=== PATIENT | male | born 1990 | race Caucasian/White ===

== ENCOUNTER 2020-11-06 23:06 | Emergency (ER) | payer OTHER ==
[2020-11-06 23:12] VITALS: BP 148/98
[2020-11-06 23:37] LABS: BILIRUBIN,URINE NEGATIVE (NEGATIVE); GLUCOSE, URINE (UA) NEGATIVE (NEGATIVE); KETONES,URINE (UA) 15 mg/dL (NEGATIVE); LEUKOCYTE ESTERASE, URINE NEGATIVE (NEGATIVE); NITRITE,URINE NEGATIVE (NEGATIVE); OCCULT BLOOD,URINE NEGATIVE (NEGATIVE); PROTEIN,URINE NEGATIVE (NEGATIVE); UROBILINOGEN,URINE 0.2 (NORMAL) E.U./dL (NORMAL)
[2020-11-06 23:38] LABS: CLARITY,URINE CLEAR (CLEAR)
[2020-11-06 23:55] LABS: BASOPHILS % (AUTO) 0.1 %; EOSINOPHILS % (AUTO) 0.2 %; HCT - HEMATOCRIT 40.5 % (42.0-52.0); HGB - HEMOGLOBIN 13.5 g/dL (14.0-18.0); LYMPHOCYTES # (AUTO) 1.8 10^3/uL (1.5-3.5); LYMPHOCYTES % (AUTO) 13.1 %; MEAN CORPUSCULAR HEMOGLOBIN 29.5 pg (27.0-31.0); MEAN CORPUSCULAR HGB CONC 33.3 g/dL (32.0-36.0); MEAN CORPUSCULAR VOLUME 88.4 fL (80.0-94.0); MEAN PLATELET VOLUME 9.3 fL (7.4-11.4); MONOCYTES # (AUTO) 1.3 10^3/uL (0.0-1.0); MONOCYTES % (AUTO) 9.4 %; NEUTROPHILS # (AUTO) 10.4 10^3/uL (1.5-6.6); NEUTROPHILS % (AUTO) 76.9 %; PLT - PLATELET COUNT 270 10^3/uL (130-450); RED BLOOD COUNT 4.58 10^6/uL (4.70-6.10); RED CELL DISTRIBUTION WIDTH 13.7 % (12.0-15.0); WHITE BLOOD COUNT 13.6 x10^3/uL (4.8-10.8)
--- NOTE | 2020-11-07 00:03 | ED Physician Documentation ---
PD HPI ABD PAIN - Stated complaint Stated Complaint: ABD Px - Chief complaint Chief Complaint: Abd Pain - History obtained from History obtained from: Patient - History of Present Illness Timing - onset: Yesterday Timing - duration: Days (1) Timing - details: Gradual onset, Still present Quality: Cramping, Sharp, Pain Location: Suprapubic Improved by: Laying still Worsened by: Eating, Moving, Position, Palpation Associated symptoms: Fever, Nausea, Other (blood on outside of stool). No: Vomiting, Diarrhea, Constipation Similar symptoms before: Has not had sx before Recently seen: Not recently seen - Additional information Additional information: 30-year-old male has had a 2-day history of blood around his stool and lower abdominal cramping-like pain. He states the pain is significant and he is here for evaluation. He has not had this pain previously he has not had blood in his stool previously he does not have a history of hemorrhoids. He does not have any family history of inflammatory bowel disease. Review of Systems Constitutional: reports: Fever Eyes: denies: Decreased vision Ears: denies: Ear pain Nose: denies: Rhinorrhea / runny nose, Congestion Throat: denies: Sore throat Cardiac: denies: Chest pain / pressure, Palpitations Respiratory: denies: Dyspnea, Cough GI: reports: Abdominal Pain, Nausea, Bloody / black stool. denies: Vomiting, Constipation, Diarrhea : denies: Dysuria, Frequency Skin: denies: Rash Musculoskeletal: denies: Neck pain, Back pain, Extremity pain Neurologic: denies: Generalized weakness, Focal weakness, Numbness PD PAST MEDICAL HISTORY - Past Medical History Past Medical History: No Cardiovascular: None Respiratory: None Neuro: None Endocrine/Autoimmune: None GI: None : None HEENT: None Psych: None Musculoskeletal: None - Past Surgical History Past Surgical History: No - Present Medications Home Medications: Ambulatory Orders Medication Instructions Recorded Confirmed Ciprofloxacin HCl [Cipro] 500 mg PO BID #14 tablet 11/07/20 HYDROcod/ACETAM 5/325 [[place]pine 5/325] 1 - 2 tablet PO Q6H PRN #14 tablet 11/07/20 metroNIDAZOLE [Flagyl] 500 mg PO BID #14 tablet 11/07/20 - Allergies Allergies/Adverse Reactions: Allergies Allergy/AdvReac Type Severity Reaction Status Date / Time No Known Drug Allergies Allergy Verified 11/06/20 23:09 - Social History Does the pt smoke?: No Does the pt drink ETOH?: Yes Does the pt have substance abuse?: No - Immunizations Immunizations are current?: Yes PD ED PE NORMAL - Vitals Vital signs reviewed: Yes (tachy and hypertensive ) - General General: Alert and oriented X 3, No acute distress, Well developed/nourished - HEENT HEENT: Atraumatic, PERRL, EOMI - Neck Neck: Supple, no meningeal sign, No bony TTP - Cardiac Cardiac: RRR, No murmur - Respiratory Respiratory: No respiratory distress, Clear bilaterally - Abdomen Abdomen: Normal bowel sounds, Soft, Non distended, No organomegaly, Other (mild suprapubic tenderness right and left. No RUQ tenderness ) - Back Back: No CVA TTP, No spinal TTP - Derm Derm: Normal color, Warm and dry, No rash - Extremities Extremities: No deformity, No edema - Neuro Neuro: Alert and oriented X 3, alteration tailor 2-12 intact, No motor deficit, No sensory deficit, Normal speech Eye Opening: Spontaneous Motor: Obeys Commands Verbal: Oriented GCS Score: 15 - Psych Psych: Normal mood, Normal affect Results - Vitals Vitals: Vital Signs - 24 hr 11/06/20 11/06/20 23:09 23:12 Temperature 36.5 C 36.5 C Heart Rate 110 H 110 H Respiratory 16 16 Rate Blood Pressure 148/98 H 148/98 H O2 Saturation 96 96 Oxygen O2 Source Room air - Labs Labs: Laboratory Tests 11/06/20 11/06/20 11/06/20 23:27 23:51 23:51 WBC 13.6 H RBC 4.58 L Hgb 13.5 L Hct 40.5 L MCV 88.4 MCH 29.5 MCHC 33.3 RDW 13.7 Plt Count 270 MPV 9.3 Neut # (Auto) 10.4 H Lymph # (Auto) 1.8 [place] # (Auto) 1.3 H Eos # (Auto) 0.0 Baso # (Auto) 0.0 Absolute Nucleated RBC 0.00 Nucleated RBC % 0.0 Sodium 136 Potassium 3.4 L Chloride 100 L Carbon Dioxide 23 Anion Gap 13.0 BUN 9 Creatinine 0.9 Estimated GFR (MDRD) 98 Glucose 119 H Calcium 8.8 Total Bilirubin 1.5 H AST 26 ALT 33 Alkaline Phosphatase 67 Total Protein 8.4 H Albumin 4.3 Globulin 4.1 Albumin/Globulin Ratio 1.0 Lipase 18 L Urine Color YELLOW Urine Clarity CLEAR Urine pH 6.0 Ur Specific [place] 1.010 Urine Protein NEGATIVE Urine Glucose (UA) NEGATIVE Urine Ketones 15 H Urine Occult Blood NEGATIVE Urine Nitrite NEGATIVE Urine Bilirubin NEGATIVE Urine Urobilinogen 0.2 (NORMAL) Ur Leukocyte Esterase NEGATIVE Ur Microscopic Review NOT INDICATED Urine Culture Comments NOT INDICATED PD MEDICAL DECISION MAKING - ED course Complexity details: reviewed results, re-evaluated patient, considered differential, d/w patient ED course: 30-year-old male with suprapubic abdominal pain and fever has diverticulitis on evaluation of the CT scan of the abdomen pelvis. He is administered oral Cipro and Flagyl. Departure - Departure Disposition: 01 Home, Self Care Clinical Impression: Diverticulitis of gastrointestinal tract Condition: Stable Instructions: ED Diverticulitis Follow-Up: SAIDA Zapata [Provider Group] Prescriptions: Ciprofloxacin HCl [Cipro] 500 mg PO BID #14 tablet metroNIDAZOLE [Flagyl] 500 mg PO BID #14 tablet HYDROcod/ACETAM 5/325 [Alpine 5/325] 1 - 2 tablet PO Q6H PRN #14 tablet PRN Reason: Pain Forms: Activity restrictions Discharge Date/Time: 11/07/20 02:16
[2020-11-07 00:10] LABS: ALBUMIN 4.3 g/dL (3.2-5.5); BILIRUBIN,TOTAL 1.5 mg/dL (0.2-1.0); CALCIUM 8.8 mg/dL (8.5-10.3); CREATININE 0.9 mg/dL (0.6-1.2); POTASSIUM 3.4 mmol/L (3.5-5.0); TOTAL PROTEIN 8.4 g/dL (6.7-8.2)
[2020-11-07] MEDS ORDERED: IOVERSOL 320 100 ML VIAL IVP ONE ×2 (00:28→00:50)
[2020-11-07] MEDS ORDERED: SODIUM CHLORIDE 0.9% 1,000 ML IV STA (00:52)
[2020-11-07] MEDS ORDERED: CIPROFLOXACIN 250 MG TABLET PO STA (01:35)
[2020-11-07] MEDS ORDERED: metroNIDAZOLE 250 MG TABLET PO STA (01:35)
[2020-11-07] MEDS ORDERED: KETOROLAC 30 MG/ML VIAL IVP STA (01:37)
--- NOTE | 2020-11-07 11:01 | CT Report ---
PROCEDURE: Abdomen/Pelvis W INDICATIONS: lower abdominal pain with bloody stool CONTRAST: IV CONTRAST: Optiray 320 ml: 100 PO CONTRAST: *NO PO CONTRAST TECHNIQUE: After the administration of contrast, 5 mm thick sections acquired from the diaphragms to the sym physis. 5 mm thick coronal and sagittal reformats were acquired. For radiation dose reduction, the following was used: automated exposure control, adjustment of mA and/or kV according to patient size . COMPARISON: None. FINDINGS: Image quality: Excellent. ABDOMEN: Lung bases: Lung bases are clear. Heart size is normal. Solid organs: Spleen are normal in size and enhancement. Liver is diffusely decreased in attenuation without focal mass lesion. Gallbladder unremarkable Biliary system is non dilated. Pancreas enhanc es normally. No adrenal nodules. Kidneys demonstrate normal size and enhancement, without hydroneph rosis. Peritoneum and bowel: Diffuse sigmoid wall thickening and pericolonic inflammatory change is noted wi thout evidence of obstruction. No encapsulated free fluid suggest abscess. There is minimal free flui d in the pelvis. Nodes and vessels: No retroperitoneal or mesenteric adenopathy by size criteria. Aorta and inferior vena cava are normal in size. Miscellaneous: No ventral hernias. PELVIS: Genitourinary: Bladder wall thickness is normal. Miscellaneous: No inguinal hernias or adenopathy. Bones: No suspicious bony lesions. No vertebral body compression fractures. IMPRESSION: 1. Acute uncomplicated sigmoid diverticulitis without evidence of abscess, free air or obstruction. 2. Hepatic fatty infiltration. Note: Final report is concordant with preliminary report provided by [employer] Reviewed by: Jonathan Licona MD on 11/07/2020 10:00 AM NEGRO Approved by: Jonathan Licona MD on 11/07/2020 10:00 AM AKANNELISE Station ID: [id number]
== END 2020-11-07 02:16 | disposition home or self-care (01) ==
LOC: ED 23:06
DX: K57.32 Diverticulitis of large intestine without perforation or abscess without bleeding (principal); K76.0 Fatty (change of) liver, not elsewhere classified
CPT/HCPCS: 36415; 74177; 80053; 81003; 83690; 85025; 96361; 96374; 99284; A9270; Q9967; 81001; 87086

== ENCOUNTER 2020-11-13 09:48 | Inpatient (IN) | payer OTHER ==
[2020-11-13 10:24] LABS: BASOPHILS % (AUTO) 0.3 %; EOSINOPHILS # (AUTO) 0.1 10^3/uL (0.0-0.7); EOSINOPHILS % (AUTO) 1.5 %; HCT - HEMATOCRIT 38.9 % (42.0-52.0); HGB - HEMOGLOBIN 12.7 g/dL (14.0-18.0); LYMPHOCYTES # (AUTO) 1.4 10^3/uL (1.5-3.5); MEAN CORPUSCULAR HEMOGLOBIN 29.6 pg (27.0-31.0); MEAN CORPUSCULAR HGB CONC 32.6 g/dL (32.0-36.0); MEAN CORPUSCULAR VOLUME 90.7 fL (80.0-94.0); MONOCYTES # (AUTO) 0.9 10^3/uL (0.0-1.0); NEUTROPHILS % (AUTO) 73.5 %; PLT - PLATELET COUNT 357 10^3/uL (130-450); RED BLOOD COUNT 4.29 10^6/uL (4.70-6.10); RED CELL DISTRIBUTION WIDTH 13.6 % (12.0-15.0); WHITE BLOOD COUNT 9.5 x10^3/uL (4.8-10.8)
[2020-11-13] MEDS ORDERED: KETOROLAC 15 MG/ML VIAL IVP STA (10:27)
[2020-11-13] MEDS ORDERED: MORPHINE 2 MG/ML CARPUJECT IVP STA (10:27)
[2020-11-13] MEDS ORDERED: IOPAMIDOL-300 100 ML VIAL ONE (10:33)
--- NOTE | 2020-11-13 10:34 | ED Physician Documentation ---
PD HPI ABD PAIN - Stated complaint Stated Complaint: ABDOMINAL PX - Chief complaint Chief Complaint: Abd Pain - History obtained from History obtained from: Patient - Additional information Additional information: 30-year-old gentleman was seen here on the . He had his first episode of diverticulitis. He was placed on Cipro and Flagyl and a CT was showing uncomplicated sigmoid diverticulitis. Since then he has not gotten any better. He has had a small amount of blood in his stools. Denies fevers. Pain is still persistent. Review of Systems Ten Systems: 10 systems reviewed and negative Constitutional: denies: Fever, Chills Cardiac: reports: Reviewed and negative Respiratory: reports: Reviewed and negative PD PAST MEDICAL HISTORY - Past Medical History Past Medical History: Yes Cardiovascular: None Respiratory: None Neuro: None Endocrine/Autoimmune: None GI: None : None HEENT: None Psych: None Musculoskeletal: None Derm: None - Past Surgical History Past Surgical History: No - Present Medications Home Medications: Ambulatory Orders Medication Instructions Recorded Confirmed Ciprofloxacin HCl [Cipro] 500 mg PO BID #14 tablet 11/07/20 HYDROcod/ACETAM 5/325 [[place] 5/325] 1 - 2 tablet PO Q6H PRN #14 tablet 11/07/20 metroNIDAZOLE [Flagyl] 500 mg PO BID #14 tablet 11/07/20 - Allergies Allergies/Adverse Reactions: Allergies Allergy/AdvReac Type Severity Reaction Status Date / Time No Known Drug Allergies Allergy Verified 11/13/20 09:58 - Social History Does the pt smoke?: No Smoking Status: Never smoker Does the pt drink ETOH?: Yes Does the pt have substance abuse?: No - Immunizations Immunizations are current?: Yes - POLST Patient has POLST: No PD ED PE NORMAL - Vitals Vital signs reviewed: Yes - General General: Alert and oriented X 3, No acute distress - HEENT HEENT: PERRL, EOMI - Neck Neck: Supple, no meningeal sign, No bony TTP - Cardiac Cardiac: RRR, No murmur - Respiratory Respiratory: No respiratory distress, Clear bilaterally - Abdomen Abdomen: Normal bowel sounds, Soft, Other (Tender in the low abdomen, left greater than right without surgical signs) - Back Back: No CVA TTP, No spinal TTP - Derm Derm: Normal color, Warm and dry - Extremities Extremities: No edema, No calf tenderness / cord - Neuro Neuro: Alert and oriented X 3, Normal speech Results - Vitals Vitals: Vital Signs - 24 hr 11/13/20 09:53 Temperature 36.5 C Heart Rate 66 Respiratory 15 Rate Blood Pressure 136/74 H O2 Saturation 99 Oxygen O2 Source Room air - Labs Labs: Laboratory Tests 11/13/20 11/13/20 10:01 10:12 WBC 9.5 RBC 4.29 L Hgb 12.7 L Hct 38.9 L MCV 90.7 MCH 29.6 MCHC 32.6 RDW 13.6 Plt Count 357 MPV 9.0 Neut # (Auto) 7.0 H Lymph # (Auto) 1.4 L [place] # (Auto) 0.9 Eos # (Auto) 0.1 Baso # (Auto) 0.0 Absolute Nucleated RBC 0.00 Nucleated RBC % 0.0 Sodium 136 Potassium 3.8 Chloride 102 Carbon Dioxide 26 Anion Gap 8.0 BUN 15 Creatinine 0.9 Estimated GFR (MDRD) 98 Glucose 102 H Calcium 9.3 Total Bilirubin 0.5 AST 32 ALT 44 Alkaline Phosphatase 65 Total Protein 8.5 H Albumin 3.9 Globulin 4.6 H Albumin/Globulin Ratio 0.8 L Lipase 19 L PD MEDICAL DECISION MAKING - ED course ED course: 30-year-old gentleman with known diverticulitis has seemingly failed treatment outpatient with Cipro and Flagyl and now has a CT showing a contained perforation. Case discussed by phone with Dr. Mejia Saucedo, our on-call surgeon at 11:37 AM and he will see the patient in the department. He got a dose of Zosyn here. Departure - Departure Disposition: 64 [facility] DC/Xfer Clinical Impression: Diverticulitis of intestine with perforation Qualifiers: Diverticulitis site: large intestine Diverticulitis bleeding: with bleeding Qualified Code(s): K57.21 - Diverticulitis of large intestine with perforation and abscess with bleeding Condition: Good Record reviewed to determine appropriate education?: Yes Discharge Date/Time: 11/13/20 14:01
[2020-11-13 10:35] LABS: ALBUMIN 3.9 g/dL (3.2-5.5); ALBUMIN/GLOBULIN RATIO 0.8 (1.0-2.2); BILIRUBIN,TOTAL 0.5 mg/dL (0.2-1.0); CALCIUM 9.3 mg/dL (8.5-10.3); CREATININE 0.9 mg/dL (0.6-1.2); POTASSIUM 3.8 mmol/L (3.5-5.0); TOTAL PROTEIN 8.5 g/dL (6.7-8.2)
[2020-11-13] MEDS ORDERED: PIPERACILLIN/TAZOBACTAM 3.375 GM in SODIUM CHLORIDE 0.9% MINIBAG 100 ML IV STA (10:58)
[2020-11-13] MEDS ORDERED: IOPAMIDOL-300 100 ML VIAL IVP ONE (11:10)
--- NOTE | 2020-11-13 11:17 | CT Report ---
PROCEDURE: Abdomen/Pelvis W INDICATIONS: Diverticulitis, no improvement CONTRAST: IV CONTRAST: Isovue 300 ml: 100 PO CONTRAST: *NO PO CONTRAST TECHNIQUE: After the administration of IV contrast, 5 mm thick sections acquired from the diaphragms to the symp hysis. 5 mm thick coronal and sagittal reformats were acquired. For radiation dose reduction, the f ollowing was used: automated exposure control, adjustment of mA and/or kV according to patient size. COMPARISON: 11/08/2020 FINDINGS: Image quality: Excellent. ABDOMEN: Lung bases: Lung bases are clear. Heart size is normal. Solid organs: Liver and spleen are normal in size and enhancement. Diffuse fatty liver infiltration can be seen. Gallbladder is relatively collapsed at the time of this study. Biliary system is n on dilated. Pancreas enhances normally. No adrenal nodules. Kidneys demonstrate normal size and en hancement, without hydronephrosis. Peritoneum and bowel: There is bowel wall thickening seen involving the sigmoid colon, with surroundi ng mild inflammatory change. Along the superior aspect of the sigmoid colon, there is mild free air a nd free fluid seen, as on series 6 image 28 and on series 3 image 66. This appears new compared to th e prior examination. The degree of inflammatory change has progressed compared to 10/28/2020. A normal appendix can be seen. No additional areas of bowel wall thickening can be seen. No dilated l oops of small bowel are seen. Nodes and vessels: No retroperitoneal or mesenteric adenopathy by size criteria. Aorta and inferior vena cava are normal in size. Miscellaneous: No ventral hernias. PELVIS: Genitourinary: Bladder wall thickness is normal. Miscellaneous: No inguinal hernias or adenopathy. Bones: No suspicious bony lesions. No vertebral body compression fractures. IMPRESSION: Interval worsening of the known diverticulitis, now with free air and free gas, which is most likely related to a contained perforation. No darian, drainable abscess can be seen at this time. Incidental note is made of: Fatty liver infiltration Normal appendix Reviewed by: Priyank Pedro MD on 11/13/2020 10:16 AM NEGRO Approved by: Priyank Pedro MD on 11/13/2020 10:16 AM AKANNELISE Station ID: [id number]
[2020-11-13] MEDS ORDERED: ONDANSETRON ODT 4 MG TABLET TL PRN (12:36)
[2020-11-13] MEDS ORDERED: SODIUM CHLORIDE FLUSH 0.9% 10 ML SYRINGE IVP PRN (12:36)
[2020-11-13] MEDS ORDERED: ONDANSETRON 4 MG/2 ML VIAL IVP PRN (12:36)
--- NOTE | 2020-11-13 12:44 | HISTORY & PHYSICAL EXAMINATION ---
Chief Complaint - Chief Complaint Chief Complaint: abdominal pain History of Present Illness - Admitted From Admitted From:: ED - History Obtained From Records Reviewed: yes History obtained from: pt Exam Limitations: none - History of Present Illness HPI Comment/Other: 1 week of abdominal pain without much change. No prior similar symptoms. He has had left lower abdominal discomfort. He had been having fevers. He was seen and evaluated in the ED and was found to have diverticulitis. He ran out of antibiotics and pain pills and came back today. He has been having bms. No recent fever. CT scan diverticulitis with small abscess/ air outside of colon. History - Past Medical History Cardiovascular: reports: None Respiratory: reports: None Neuro: reports: None Endocrine/Autoimmune: reports: None GI: reports: None : reports: None HEENT: reports: None Psych: reports: None Musculoskeletal: reports: None Derm: reports: None MRSA Hx?: No - POLST Patient has POLST: No Meds/Allgy - Home Medications Home Medications: Ambulatory Orders Medication Instructions Recorded Confirmed Ciprofloxacin HCl [Cipro] 500 mg PO BID #14 tablet 11/07/20 HYDROcod/ACETAM 5/325 [[place] 5/325] 1 - 2 tablet PO Q6H PRN #14 tablet 11/07/20 metroNIDAZOLE [Flagyl] 500 mg PO BID #14 tablet 11/07/20 - Allergies Allergies/Adverse Reactions: Allergies Allergy/AdvReac Type Severity Reaction Status Date / Time No Known Drug Allergies Allergy Verified 11/13/20 09:58 Review of Systems - Other Findings Other Findings: 10 pt ros as above otherwise unremarkable Exam - Vital Signs Reviewed Vital Signs: Yes Vital Signs: Vital Signs x48h Temp Pulse Resp BP Pulse Ox 11/13/20 09:53 36.5 C 66 15 136/74 H 99 - Physical Exam General Appearance: positive: No acute distress, Alert Eyes Bilateral: positive: PERRL, EOMI ENT: positive: No signs of dehydration Neck: positive: No JVD Respiratory: positive: No respiratory distress, Breath sounds nml Cardiovascular: positive: Regular rate & rhythm Abdomen: positive: No distention, Other (tenderness left lower abdomen without guarding or peritonitis) Neurologic/Psychiatric: positive: Oriented x3 Conclusion/Plan - Problem List (1) Diverticulitis of colon with perforation Conclusion/Plan: He is failing outpatient management. His diverticulitis is progressing. Plan admit for bowel rest and iv antibiotics. Potential hospital course and course of his diverticulitis discussed. - Lab Results Fish Bones: 11/13/20 10:01 11/13/20 10:12 - Diagnostic Imaging Results Diagnostic Imaging Results: positive: Read independently
[2020-11-13] MEDS: D5.45NS W/20 MEQ KCL 1,000 ML IV SCH ×2 (14:05→21:17)
[2020-11-13 14:17] LABS: B. PARAPERTUSSIS- RESP PCR PAN NOT DETECTED; B. PERTUSSIS- RESP PCR PANEL NOT DETECTED; C. PNEUMONIAE- RESP PCR PANEL NOT DETECTED; CORONAVIRUS 229E-RESP PCR NOT DETECTED; CORONAVIRUS HKU1-RESP PCR NOT DETECTED; CORONAVIRUS NL63-RESP PCR NOT DETECTED; CORONAVIRUS OC43-RESP PCR NOT DETECTED; HUMAN METAPNEUMOVIRUS NOT DETECTED; INFLUENZA A- RESP PCR PANEL NOT DETECTED; INFLUENZA B - RESP PCR PANEL NOT DETECTED; M. PNEUMONIAE- RESP PCR PANEL NOT DETECTED; PARAINFLUENZA VIRUS 1 NOT DETECTED; PARAINFLUENZA VIRUS 2 NOT DETECTED; PARAINFLUENZA VIRUS 3 NOT DETECTED; PARAINFLUENZA VIRUS 4 NOT DETECTED; RHINOVIRUS/ENTEROVIRUS NOT DETECTED; RSV- RESP PCR PANEL NOT DETECTED; SARS-CoV-2 -RESP PCR PANEL NOT DETECTED
[2020-11-13] MEDS: ACETAMINOPHEN 325 MG TABLET PO PRN (15:37)
[2020-11-13] MEDS: HYDROmorphone 0.5 MG/0.5 ML SYRINGE IVP PRN (15:37)
[2020-11-13] MEDS: PIPERACILLIN/TAZOBACTAM 4.5 GM in SODIUM CHLORIDE 0.9% MINIBAG 100 ML IV SCH ×2 (16:30→23:58)
[2020-11-13] MEDS: SODIUM CHLORIDE FLUSH 0.9% 10 ML SYRINGE IVP SCH ×2 (17:43→23:58)
[2020-11-13] MEDS ORDERED: SODIUM CHLORIDE 0.9% 250 ML IV PRN (17:43)
[2020-11-14] MEDS: D5.45NS W/20 MEQ KCL 1,000 ML IV SCH ×3 (05:00→20:35)
[2020-11-14] MEDS: SODIUM CHLORIDE FLUSH 0.9% 10 ML SYRINGE IVP SCH ×2 (07:41→16:50)
[2020-11-14] MEDS: PIPERACILLIN/TAZOBACTAM 4.5 GM in SODIUM CHLORIDE 0.9% MINIBAG 100 ML IV SCH ×2 (07:41→16:50)
[2020-11-14] MEDS: ACETAMINOPHEN 325 MG TABLET PO PRN (07:41)
[2020-11-14] MEDS: HYDROmorphone 0.5 MG/0.5 ML SYRINGE IVP PRN (07:41)
--- NOTE | 2020-11-14 11:38 | PHARMACY PROGRESS NOTE ---
- Best Possible Medication History Admit Date and Time: 11/13/20 1236 Processed by: Pharmacy Medication History completed: Yes Secondary Source(s): Physician records, Pharmacy records, Insurance records, Previous admit records As the person ultimately responsible for medication therapy, providers are able to order a medication from an existing home medication list in [facility] via the "Reconcile Routine" prior to Confirmation of that medication by collection support specialist. Such practice is discouraged except when the physician, in their clinical judgment, deems that a medical need exists for a medication without regard to previous use.
[2020-11-15] MEDS: PIPERACILLIN/TAZOBACTAM 4.5 GM in SODIUM CHLORIDE 0.9% MINIBAG 100 ML IV SCH ×3 (00:18→15:44)
[2020-11-15] MEDS: SODIUM CHLORIDE FLUSH 0.9% 10 ML SYRINGE IVP SCH ×3 (00:26→17:03)
[2020-11-15] MEDS: D5.45NS W/20 MEQ KCL 1,000 ML IV SCH ×3 (04:26→21:18)
--- NOTE | 2020-11-15 07:34 | PROVIDER PROGRESS NOTE ---
Progress Note Subjective Hospital day #2 admitted for first episode of diverticulitis. Complicated. Persistent pain. Objective Afebrile hemodynamically except above. General Appearance: positive: No acute distress Eyes Bilateral: positive: Normal inspection ENT: positive: ENT inspection nml Neck: positive: Nml inspection Respiratory: positive: Chest non-tender, No respiratory distress, Breath sounds nml. negative: Wheezes, Rales, Rhonchi Cardiovascular: positive: Regular rate & rhythm Abdomen: positive: No distention, Other. negative: Guarding, Rebound Extremities: positive: Non-tender, Full ROM, Nml appearance Neurologic/Psychiatric: positive: Oriented x3, CN's nml (2-12) No rebound no guarding. Abdominal tenderness to palpation. Impression/Plan Patient is an 30y/o male with no significant past medical history. First episode of diverticulitis. Complicated. Current plan is as follows: (A) GI - IVF, bowel rest. GI ppx. Anticipate ileus. Opiate sparring analgesia. Will need repeat imaging. Will need outpatient colonoscopy if resolves current episodes nonoperatively. (B) SURGERY - In the setting of refractory disease we will proceed with the followin. Diagnostic laparoscopy 2. Laparoscopic adhesiolysis 3. Laparoscopic low anterior resection 4. Laparoscopic splenic flexure mobilization, possible 5. Rigid proctoscopy 6. Possible laparoscopic loop ileostomy 7. Possible end colostomy via Leal's procedure 8. Drain placement (C) Renal/Lytes - continue IVF. Renal indices within normal limits. (D) Respiratory - O2 as necessary. (E) Heme - Will continue with DVT ppx. H/H stable. (F) Cardiovascular - HD acceptable. (G) Neuro - Opiate sparring analgesia. Antispasmodics with Robaxin. (H) Infectious Disease - consider PICC line and IV antibiotics
[2020-11-15 08:58] LABS: BASOPHILS % (AUTO) 0.4 %; EOSINOPHILS # (AUTO) 0.2 10^3/uL (0.0-0.7); EOSINOPHILS % (AUTO) 4.3 %; HCT - HEMATOCRIT 41.1 % (42.0-52.0); HGB - HEMOGLOBIN 13.1 g/dL (14.0-18.0); LYMPHOCYTES # (AUTO) 1.2 10^3/uL (1.5-3.5); LYMPHOCYTES % (AUTO) 21.7 %; MEAN CORPUSCULAR HEMOGLOBIN 29.2 pg (27.0-31.0); MEAN CORPUSCULAR HGB CONC 31.9 g/dL (32.0-36.0); MEAN CORPUSCULAR VOLUME 91.7 fL (80.0-94.0); MEAN PLATELET VOLUME 8.9 fL (7.4-11.4); MONOCYTES # (AUTO) 0.5 10^3/uL (0.0-1.0); MONOCYTES % (AUTO) 8.4 %; NEUTROPHILS # (AUTO) 3.6 10^3/uL (1.5-6.6); NEUTROPHILS % (AUTO) 64.5 %; PLT - PLATELET COUNT 419 10^3/uL (130-450); RED BLOOD COUNT 4.48 10^6/uL (4.70-6.10); RED CELL DISTRIBUTION WIDTH 13.2 % (12.0-15.0); WHITE BLOOD COUNT 5.6 x10^3/uL (4.8-10.8)
[2020-11-15 09:11] LABS: ALBUMIN 3.8 g/dL (3.2-5.5); ALBUMIN/GLOBULIN RATIO 0.9 (1.0-2.2); BILIRUBIN,TOTAL 0.5 mg/dL (0.2-1.0); CALCIUM 9.1 mg/dL (8.5-10.3); CREATININE 0.7 mg/dL (0.6-1.2); POTASSIUM 4.4 mmol/L (3.5-5.0); TOTAL PROTEIN 8.1 g/dL (6.7-8.2)
--- NOTE | 2020-11-15 13:52 | PROVIDER PROGRESS NOTE ---
Subjective - Prog Note Date Prog Note Date: 11/15/20 - Subjective Pt reports feeling: Improved (very little pain today) Objective - Vital Signs/Intake & Output Reviewed Vital Signs: Yes Vital Signs: Vital Signs x48h Temp Pulse Resp BP Pulse Ox 11/15/20 08:30 36.6 C 53 L 18 121/61 100 Intake & Output: Intake & Output 11/12/20 11/13/20 11/14/20 11/15/20 23:59 23:59 23:59 23:59 Intake Total 1740 4607.916 2721.25 Balance 1740 4607.916 2721.25 - Objective General Appearance: positive: No acute distress Eyes Bilateral: positive: PERRL, EOMI ENT: positive: Pharynx nml Neck: positive: No JVD Respiratory: positive: No respiratory distress Abdomen: positive: No distention, Other (minimal tenderness) Neurologic/Psychiatric: positive: Oriented x3 - Lab Results Fish Bones: 11/15/20 08:52 11/15/20 08:52 Other Labs: Lab Results x24hrs 11/15/20 11/15/20 Range/Units 08:52 08:52 WBC 5.6 (4.8-10.8) x10^3/uL RBC 4.48 L (4.70-6.10) 10^6/uL Hgb 13.1 L (14.0-18.0) g/dL Hct 41.1 L (42.0-52.0) % MCV 91.7 (80.0-94.0) fL MCH 29.2 (27.0-31.0) pg MCHC 31.9 L (32.0-36.0) g/dL RDW 13.2 (12.0-15.0) % Plt Count 419 (130-450) 10^3/uL MPV 8.9 (7.4-11.4) fL Neut # (Auto) 3.6 (1.5-6.6) 10^3/uL Lymph # (Auto) 1.2 L (1.5-3.5) 10^3/uL [place] # (Auto) 0.5 (0.0-1.0) 10^3/uL Eos # (Auto) 0.2 (0.0-0.7) 10^3/uL Baso # (Auto) 0.0 (0.0-0.1) 10^3/uL Absolute Nucleated RBC 0.00 x10^3/uL Nucleated RBC % 0.0 /100WBC Sodium 144 (135-145) mmol/L Potassium 4.4 (3.5-5.0) mmol/L Chloride 107 (101-111) mmol/L Carbon Dioxide 30 (21-32) mmol/L Anion Gap 7.0 (6-13) BUN 5 L (6-20) mg/dL Creatinine 0.7 (0.6-1.2) mg/dL Estimated GFR (MDRD) 131 (>89) Glucose 119 H (70-100) mg/dL Calcium 9.1 (8.5-10.3) mg/dL Total Bilirubin 0.5 (0.2-1.0) mg/dL AST 19 (10-42) IU/L ALT 33 (10-60) IU/L Alkaline Phosphatase 53 (42-121) IU/L Total Protein 8.1 (6.7-8.2) g/dL Albumin 3.8 (3.2-5.5) g/dL Globulin 4.3 H (2.1-4.2) g/dL Albumin/Globulin Ratio 0.9 L (1.0-2.2) Assessment/Plan - Problem List (1) Diverticulitis of colon with perforation Impression: improving. continue present care. home when pain free and non tender. if not progressing plan ct. will hold on ct today as he is feeling better.
[2020-11-16] MEDS: PIPERACILLIN/TAZOBACTAM 4.5 GM in SODIUM CHLORIDE 0.9% MINIBAG 100 ML IV SCH ×3 (00:11→16:16)
[2020-11-16] MEDS: SODIUM CHLORIDE FLUSH 0.9% 10 ML SYRINGE IVP SCH ×3 (00:12→16:16)
[2020-11-16 05:17] LABS: BASOPHILS % (AUTO) 0.4 %; EOSINOPHILS # (AUTO) 0.2 10^3/uL (0.0-0.7); EOSINOPHILS % (AUTO) 4.8 %; HCT - HEMATOCRIT 37.2 % (42.0-52.0); HGB - HEMOGLOBIN 11.7 g/dL (14.0-18.0); LYMPHOCYTES # (AUTO) 1.6 10^3/uL (1.5-3.5); LYMPHOCYTES % (AUTO) 31.7 %; MEAN CORPUSCULAR HEMOGLOBIN 28.7 pg (27.0-31.0); MEAN CORPUSCULAR HGB CONC 31.5 g/dL (32.0-36.0); MEAN CORPUSCULAR VOLUME 91.2 fL (80.0-94.0); MEAN PLATELET VOLUME 9.2 fL (7.4-11.4); MONOCYTES # (AUTO) 0.4 10^3/uL (0.0-1.0); NEUTROPHILS # (AUTO) 2.7 10^3/uL (1.5-6.6); NEUTROPHILS % (AUTO) 54.7 %; PLT - PLATELET COUNT 391 10^3/uL (130-450); RED BLOOD COUNT 4.08 10^6/uL (4.70-6.10); RED CELL DISTRIBUTION WIDTH 13.2 % (12.0-15.0)
[2020-11-16 05:29] LABS: ALBUMIN 3.3 g/dL (3.2-5.5); ALBUMIN/GLOBULIN RATIO 0.9 (1.0-2.2); BILIRUBIN,TOTAL 0.7 mg/dL (0.2-1.0); CREATININE 0.9 mg/dL (0.6-1.2); TOTAL PROTEIN 7.1 g/dL (6.7-8.2)
[2020-11-16] MEDS: D5.45NS W/20 MEQ KCL 1,000 ML IV SCH ×3 (05:33→21:43)
[2020-11-16 05:37] LABS: CALCIUM 8.7 mg/dL (8.5-10.3)
--- NOTE | 2020-11-16 09:40 | PROVIDER PROGRESS NOTE ---
Subjective - Prog Note Date Prog Note Date: 11/16/20 - Subjective Pt reports feeling: Improved (still having pain however better) Objective - Vital Signs/Intake & Output Reviewed Vital Signs: Yes Vital Signs: Vital Signs x48h Temp Pulse Resp BP Pulse Ox 11/16/20 08:00 36.5 C 50 L 18 107/68 98 Intake & Output: Intake & Output 11/13/20 11/14/20 11/15/20 11/16/20 23:59 23:59 23:59 23:59 Intake Total 1740 4607.916 5081.25 1100 Balance 1740 4607.916 5081.25 1100 - Objective General Appearance: positive: No acute distress Eyes Bilateral: positive: PERRL, EOMI Neck: positive: No JVD Respiratory: positive: No respiratory distress Abdomen: positive: No distention, Other (minimal tenderness) - Lab Results Fish Bones: 11/16/20 04:35 11/16/20 04:35 Other Labs: Lab Results x24hrs 11/16/20 11/16/20 Range/Units 04:35 04:35 WBC 5.0 (4.8-10.8) x10^3/uL RBC 4.08 L (4.70-6.10) 10^6/uL Hgb 11.7 L (14.0-18.0) g/dL Hct 37.2 L (42.0-52.0) % MCV 91.2 (80.0-94.0) fL MCH 28.7 (27.0-31.0) pg MCHC 31.5 L (32.0-36.0) g/dL RDW 13.2 (12.0-15.0) % Plt Count 391 (130-450) 10^3/uL MPV 9.2 (7.4-11.4) fL Neut # (Auto) 2.7 (1.5-6.6) 10^3/uL Lymph # (Auto) 1.6 (1.5-3.5) 10^3/uL [place] # (Auto) 0.4 (0.0-1.0) 10^3/uL Eos # (Auto) 0.2 (0.0-0.7) 10^3/uL Baso # (Auto) 0.0 (0.0-0.1) 10^3/uL Absolute Nucleated RBC 0.00 x10^3/uL Nucleated RBC % 0.0 /100WBC Sodium 142 (135-145) mmol/L Potassium 4.0 (3.5-5.0) mmol/L Chloride 109 (101-111) mmol/L Carbon Dioxide 29 (21-32) mmol/L Anion Gap 4.0 L (6-13) BUN 5 L (6-20) mg/dL Creatinine 0.9 (0.6-1.2) mg/dL Estimated GFR (MDRD) 98 (>89) Glucose 110 H (70-100) mg/dL Calcium 8.7 (8.5-10.3) mg/dL Total Bilirubin 0.7 (0.2-1.0) mg/dL AST 17 (10-42) IU/L ALT 27 (10-60) IU/L Alkaline Phosphatase 50 (42-121) IU/L Total Protein 7.1 (6.7-8.2) g/dL Albumin 3.3 (3.2-5.5) g/dL Globulin 3.8 (2.1-4.2) g/dL Albumin/Globulin Ratio 0.9 L (1.0-2.2) Assessment/Plan - Problem List (1) Diverticulitis of colon with perforation Impression: continuue iv abxs and bowel rest until symptoms resolved. he failed outpt m anagement with oral antibiotics. home tomorrow if non tender
[2020-11-17] MEDS: SODIUM CHLORIDE FLUSH 0.9% 10 ML SYRINGE IVP SCH ×2 (00:27→07:41)
[2020-11-17] MEDS: PIPERACILLIN/TAZOBACTAM 4.5 GM in SODIUM CHLORIDE 0.9% MINIBAG 100 ML IV SCH ×2 (00:27→07:41)
[2020-11-17 05:01] LABS: BASOPHILS % (AUTO) 0.3 %; EOSINOPHILS # (AUTO) 0.2 10^3/uL (0.0-0.7); EOSINOPHILS % (AUTO) 4.2 %; HCT - HEMATOCRIT 38.2 % (42.0-52.0); HGB - HEMOGLOBIN 12.2 g/dL (14.0-18.0); LYMPHOCYTES # (AUTO) 1.8 10^3/uL (1.5-3.5); LYMPHOCYTES % (AUTO) 31.9 %; MEAN CORPUSCULAR HGB CONC 31.9 g/dL (32.0-36.0); MEAN CORPUSCULAR VOLUME 90.7 fL (80.0-94.0); MEAN PLATELET VOLUME 8.9 fL (7.4-11.4); MONOCYTES # (AUTO) 0.5 10^3/uL (0.0-1.0); MONOCYTES % (AUTO) 7.8 %; NEUTROPHILS # (AUTO) 3.2 10^3/uL (1.5-6.6); NEUTROPHILS % (AUTO) 55.5 %; PLT - PLATELET COUNT 382 10^3/uL (130-450); RED BLOOD COUNT 4.21 10^6/uL (4.70-6.10); WHITE BLOOD COUNT 5.8 x10^3/uL (4.8-10.8)
[2020-11-17 05:13] LABS: ALBUMIN 3.6 g/dL (3.2-5.5); BILIRUBIN,TOTAL 0.5 mg/dL (0.2-1.0); CALCIUM 8.7 mg/dL (8.5-10.3); POTASSIUM 3.8 mmol/L (3.5-5.0); TOTAL PROTEIN 7.3 g/dL (6.7-8.2)
[2020-11-17] MEDS: D5.45NS W/20 MEQ KCL 1,000 ML IV SCH (05:46)
[2020-11-17 08:10] VITALS: BP 121/71
--- NOTE | 2020-11-17 09:09 | Discharge Plan ---
Discharge Plan Problem Reviewed?: Yes Disposition: Home, Self Care Prescriptions: Amox/Clav 875/125 [Augmentin 875/125 Tab] 1 tablet PO Q8H 10 Days #30 tablet Diet: Soft (mostly clear liquids until pain free/ non tender and no blood in stool) Activity Restrictions: No Restrictions Shower Restrictions: No Plan of Treatment: continue antibiotics and light diet for diverticulitis for 10 more days Assessment: improved after bowel rest and with iv antibiotics Additional Instructions or Follow Up instructions: call the surgery office for follow up as needed [phone] add fiber supplements to your diet in about 2 weeks. 40 gms fiber per day with plenty of fluids recommended follow up with your primary care provider No Smoking: If you smoke, Please STOP! Call for help. Follow-up with: BRENDEN VELARDE MD [Primary Care Provider] -
--- NOTE | 2020-11-17 10:29 | DISCHARGE SUMMARY ---
"Discharge Summary Admit Date: 11/13/20 Discharge Date: 11/17/20 Discharging Provider: anaid aden md Code Status: Attempt Resuscitation Condition at Discharge: Good Discharge Disposition: 01 Home, Self Care Discharge Facility Name: formerly [facility] - DIAGNOSES Admission Diagnoses: diverticulitis Discharge Diagnoses with Status of Each Condition: home in good condition - HPI History of Present Illness: Treated as an outpatient with oral antibiotics for 1 week. Admitted with progressive pain. Treated in the hospital with bowel rest and iv antibiotics. Much improved at time of discharge - CONSULTS | PROCEDURES Procedures: ivf, iv antibiotics, bowel rest - ALLERGIES Allergies/Adverse Reactions: Allergies Allergy/AdvReac Type Severity Reaction Status Date / Time No Known Drug Allergies Allergy Verified 11/13/20 09:58 - MEDICATIONS Home Medications: Ambulatory Orders Medication Instructions Recorded Confirmed Ciprofloxacin HCl [Cipro] 500 mg PO BID #14 tablet 11/07/20 11/13/20 HYDROcod/ACETAM 5/325 [[place] 5/325] 1 - 2 tablet PO Q6H PRN #14 tablet 11/07/20 11/13/20 metroNIDAZOLE [Flagyl] 500 mg PO BID #14 tablet 11/07/20 11/13/20 Amox/Clav 875/125 [Augmentin 1 tablet PO Q8H 10 Days #30 tablet 11/17/20 875/125 Tab] - PHYSICAL EXAM AT DISCHARGE General Appearance: positive: No acute distress, Alert Eyes Bilateral: positive: PERRL, EOMI ENT: positive: No signs of dehydration Neck: positive: No JVD Respiratory: positive: No respiratory distress Abdomen: positive: No distention, Other (minimal tenderness) Neurologic/Psychiatric: positive: Oriented x3 - LABS Result Diagrams: 11/17/20 04:50 11/17/20 04:50 - FOLLOW UP Follow Up: Surgery as needed or desired [phone]"
== END 2020-11-17 13:00 | disposition home or self-care (01) | DRG 379 ==
LOC: ED 09:48 → MS3 12:36
PROVIDERS: ADMIT Surgery; ATTEND Surgery
DX: K57.21 Diverticulitis of large intestine with perforation and abscess with bleeding (principal); Z20.822 Contact with and (suspected) exposure to COVID-19
CPT/HCPCS: 0202U; 36415; 74177; 80053; 83690; 85025; 96365; 96366; 96375; 99283; 99285; A9270; J1170; Q9967